=== PATIENT | male | born 1990 | race Caucasian/White ===

== ENCOUNTER 2025-03-28 05:42 | Emergency (ER) | payer BC, SELFPAY ==
[2025-03-28 05:44] VITALS: BP 113/90
--- NOTE | 2025-03-28 06:15 | ED.GENMED ---
History of Present Illness
General
Chief Complaint: Dental Problem
Time Seen by Provider: 03/28/25 06:09
History of Present Illness
History of Present Illness:
TIME OF INITIAL ENCOUNTER: 6:20am
HPI: Patient presents due to concern of an infected tooth. Two days ago had sharp pain while brushing teeth. He was concerned because of left sided facial swelling. The patient admits to poor dental care and is a smoker.
EXAM:
GENERAL: Well appearing in no significant distress
HEENT: Poor dentition; pain at teeth #11/12 region, gingival inflammation; minimal if any left facial swelling/erythema
NEUROLOGIC: Excellent strength all extremities, no obvious coordination deficits
PSYCHIATRIC: Appropriate mental status, normal insight and judgement
EXTREMITIES: Nontender, no edema, moves all extremities equally
SKIN: No rash, no lesions
NUMBER AND COMPLEXITY OF PROBLEMS ADDRESSED AT THE ENCOUNTER
� Chronic conditions affecting care: No significant past medical history, he is a smoker
� Acute Exacerbation and/or Progression of Chronic Illness: This is an acute problem
� Differential Diagnosis includes: Dental caries, dental abscess, facial abscess/cellulitis
AMOUNT AND/OR COMPLEXITY OF DATA TO BE REVIEWED AND ANALYZED
� I performed an independent evaluation of and my interpretation is:
EKG:
CT:
X-rays:
Laboratory Studies:
Other:
� Review of other/old records: I reviewed records, the patient was here with back pain in 2013
� Clinical information was obtained by an independent historian: I spoke to girlfriend at bedside
� Prescriptions/Medications Considered but not given:
� Further testing considered but not performed:
RISK OF COMPLICATIONS AND/OR MORBIDITY OR MORTALITY OF PATIENT MANAGEMENT
� Social determinants of health affecting care: Does not see a dentist
� Discussion with other providers:
� Escalation of care including admission/observation vs risk of discharge considered: Will place on amoxicillin for concerns of dental abscess. The patient does have poor dentition. His girlfriend states that she will call the
dental school to arrange follow-up.
ANY OTHER UPDATES:
Past History
Past History
ED Past Medical History: Other (Episode of LE weakness)
ED Past Surgical History: None
Social History
Tobacco: Smoker
Alcohol: Occasional
Drug: None
Personal: Single
Living: with family
Employment: Employed
Family History
Family History: Other (back pain)
Phy Exam
Physical Exam
Physical Exam:
See HPI
Course
Orders/Labs/Results
Orders:
Orders
03/28/25 06:23
Amoxicillin [Amoxil] 1,000 mg PO NOW STA
Ketorolac [Toradol] 30 mg IM NOW STA
Vital Signs
Initial and Last Documented VS:
Initial Vital Signs
Temp Pulse Resp BP Pulse Ox
37.0 C 94 16 113/90 100
03/28/25 05:44 03/28/25 05:44 03/28/25 05:44 03/28/25 05:44 03/28/25 05:44
Last Documented Vital Signs
Temp Pulse Resp BP Pulse Ox
37.0 C 94 16 113/90 100
03/28/25 05:44 03/28/25 05:44 03/28/25 05:44 03/28/25 05:44 03/28/25 05:44
*Critical Care Note
Total Time (30-74mins, 75-104mins- exclusive of procedures): Not Applicable
ED Attending Note
-
Portions of this chart may have been created with voice recognition software.� Occasional wrong word or��sound alike� substitutions may have occurred due to the inherent limitations of voice recognition software.
Discharge Plan
Departure
Patient Disposition: Home (Routine Discharge)
Date of Disposition: 03/28/25
Time of Disposition: 06:24
Patient with high blood pressure during this ER visit?: Yes
Discharge Problem:
Dental abscess
Instructions: Tooth Abscess (DC), Tooth Decay, Adult (DC), Dental Pain (DC), BLOOD PRESSURE
Prescriptions:
New
amoxicillin 500 mg tablet
1,000 mg PO TID Qty: 42 0RF
Activity Restrictions/Additional Instructions:
I sent a prescription for amoxicillin to your pharmacy. I recommend 3-4 [id number] ibuprofen (Motrin) every 8 hours with food for a few days. Return here if worse. Follow-up with a dentist.
Interventions
Interventions:
*Risk Screen - Suicide Last Done: 03/28/25 05:44
*General Assessment Last Done: 03/28/25 05:44
*Neglect/Abuse Screening Last Done: 03/28/25 05:44
*ED COVID-19 Vaccine History Last Done: 03/28/25 05:44
Discharge Date and Time
Print Language: SLOVENIAN
[2025-03-28] MEDS: TORADOL 30 MG IM (06:40)
[2025-03-28] MEDS: AMOXIL 1000 MG PO (06:40)
[2025-03-28 06:45] VITALS: BP 121/89
== END 2025-03-28 06:45 | disposition home or self-care (01) ==
LOC: EMR 05:42
PROVIDERS: EMERGENCY PHYSICIAN Emergency Medicine
DX: K04.7 Periapical abscess without sinus (principal); F17.200 Nicotine dependence, unspecified, uncomplicated
CPT/HCPCS: 96372; 99284